=== PATIENT | female | born 1950 | race Asian ===

== ENCOUNTER 2021-09-27 23:35 | Emergency (ER) | payer OTHER ==
[~2021-09-27] VITALS: Ht 162.6 cm; Wt 98.0 kg
[2021-09-27 23:35] VITALS: BP 160/71; TEMP 98.5
[2021-09-28 00:33] LABS: POTASSIUM 3.3 mmol/L (3.6-5.2)
[2021-09-28 00:54] LABS: PLATELET COUNT 226 K/uL (152-353)
[2021-09-28] MEDS ORDERED: CARBAMAZEPIN400 MG PO (04:51)
[2021-09-28] MEDS ORDERED: DOCU100C10 PO (04:52)
[2021-09-28] MEDS ORDERED: LATANOPROST0.005 % OPTH (04:53)
[2021-09-28] MEDS ORDERED: ASPIRIN81 M1 PO (04:54)
[2021-09-28] MEDS ORDERED: MULTIVITAMI1 PO (04:54)
[2021-09-28] MEDS ORDERED: LISI10TA11 PO (04:55)
[2021-09-28] MEDS ORDERED: MELOXICAM7.5 MG PO (04:55)
[2021-09-28] MEDS ORDERED: METFORMIN HCL500 MG PO (04:56)
[2021-09-28] MEDS ORDERED: WHITE PETROLATUM OPTH (04:58)
[2021-09-28] MEDS ORDERED: PRAVASTATIN10 MG PO (04:58)
[2021-09-28] MEDS ORDERED: MINERAL OIL OPTH (04:58)
[2021-09-28] MEDS ORDERED: ZOLOFT25 MG PO (04:59)
[2021-09-28] MEDS ORDERED: TIMOLOL MAL0.5 % OPTH (04:59)
[2021-09-28] MEDS ORDERED: DIVALPROEX125 MG PO (05:00)
[2021-09-28] MEDS ORDERED: GABA400C2 PO (05:01)
[2021-09-28] MEDS ORDERED: NOVOLIN 70/30 F1 INJ SC (05:07)
[2021-09-28] MEDS ORDERED: QUETIAPINE100 MG PO (05:08)
[2021-09-28] MEDS ORDERED: ELDERTONIC PO (05:09)
[2021-09-28] MEDS ORDERED: HYDROCODONE BIT1 TA2 PO (05:10)
[2021-09-28] MEDS ORDERED: ARTIFICIAL TEAR1.4 % OPTH (05:11)
[2021-09-28] MEDS ORDERED: BISACODYL LAXAT10 MG RE (05:12)
[2021-09-28] MEDS ORDERED: TYLENOL325 MG PO (05:12)
[2021-09-28] MEDS ORDERED: DIPH25CA90 PO (05:13)
[2021-09-28] MEDS ORDERED: TUMS500 MG PO (05:13)
[2021-09-28] MEDS ORDERED: GLUCOSE40 % PO (05:15)
[2021-09-28] MEDS ORDERED: PROMETHAZINE HY25 MG PO (05:16)
[2021-09-28] MEDS ORDERED: LORA0.5T17 PO (05:16)
== END 2021-09-28 02:00 | disposition still patient (30) ==
LOC: ED 23:35
PROVIDERS: Emergency Medicine Emergency Medical Services
DX: F01.51 Vascular dementia, unspecified severity, with behavioral disturbance (principal); R45.1 Restlessness and agitation; Z11.52 Encounter for screening for COVID-19; Z04.6 Encounter for general psychiatric examination, requested by authority
CPT/HCPCS: 36415; 80053; 85027; 87635; 93005; 99283; U0003